=== PATIENT | male | born 1985 | race Caucasian/White ===

== ENCOUNTER 2018-10-02 20:32 | Emergency (ER) | payer BC ==
[~2018-10-02] VITALS: Ht 180.3 cm; Wt 119.3 kg
[2018-10-02 20:37] VITALS: Ht 180.3 cm; Wt 119.3 kg
[2018-10-02 21:34] LABS: BASOPHIL % 0.7 % (0-2); PLATELET COUNT 266 x10^3mcL (130-400); RED CELL DISTRIBUTION WIDTH 13.4 % (11.5-14.5)
[2018-10-02 21:43] LABS: CALCIUM 8.4 mg/dL (8.5-10.1); CHLORIDE SERUM 106 mmol/L (98-107); GFR1 > 60 mL/min; GLUCOSE SERUM 111 mg/dL (74-106); POTASSIUM SERUM 3.8 mmol/L (3.5-5.1); SODIUM SERUM 140 mmol/L (136-145)
[2018-10-02 21:49] LABS: ALBUMIN 3.6 g/dL (3.4-5.0); ALKALINE PHOSPHATASE 75 U/L (46-116); ALT/SGPT 24 U/L (16-63); AST/SGOT 11 U/L (15-37); BILIRUBIN TOTAL 0.34 mg/dL (0.20-1.00); CHOLESTEROL 187 mg/dL (<200); CHOLESTEROL/HDL RATIO 5.1; HDL CHOLESTEROL 37 mg/dL (40-60); TOTAL PROTEIN, SERUM 7.4 g/dL (6.4-8.2)
[2018-10-02 21:51] LABS: TRIGLYCERIDES 239 mg/dL (<150)
[2018-10-02 23:21] LABS: AMPHETAMINE QUAL UR NONE DETECTED (See below)
[2018-10-03] VITALS: BP 96/62
== END 2018-10-03 | disposition home or self-care (01) ==
LOC: ED 20:32
PROVIDERS: Emergency Medicine
DX: R07.2 Precordial pain (principal); F17.210 Nicotine dependence, cigarettes, uncomplicated
CPT/HCPCS: 99406; J1885; J7030; Q0092